=== PATIENT | female | born 1990 | race African-American/Black ===

== ENCOUNTER 2021-07-02 13:29 | Emergency (ER) | payer SELFPAY ==
[~2021-07-02] VITALS: Ht 165.1 cm; Wt 74.8 kg
[2021-07-02 22:10] VITALS: BP 137/92
[2021-07-02 23:40] LABS: Basophils # (auto) 0 10 ^3/uL (0-0.2); Basophils % (auto) 0.4 % (0.0-2.0); Eosinophils # (auto) 0 10 ^3/uL (0-0.8); Eosinophils % (auto) 0.2 % (0.0-7.0); Hematocrit 43.6 % (36.0-46.0); Hemoglobin 14.1 g/dL (12.2-16.2); Lymphocytes # (auto) 2.5 10 ^3/uL (0.4-5.4); Lymphocytes % (auto) 23.3 % (10.0-50.0); Mean Corpuscular Hemoglobin 27.9 pg (28.0-32.0); Mean Corpuscular Hgb Conc. 32.3 g/dL (32.0-36.0); Mean Corpuscular Volume 86.5 fL (80.0-100.0); Monocytes # (auto) 0.6 10 ^3/uL (0-1.3); Monocytes % (auto) 5.6 % (0.0-12.0); Neutrophils # (auto) 7.7 10 ^3/uL (1.6-8.6); Neutrophils % (auto) 70.5 % (37.0-80.0); Nucleated Red Blood Cells % 0.1 %; Red Blood Cells 5.04 10^6/uL (4.0-5.20); Red Cell Distribution Width 13.8 % (11.8-14.3); White Blood Cell 10.9 10^3/uL (4.4-10.8)
[2021-07-03] LABS: Albumin 4.2 g/dL (3.4-5.0); Anion Gap 11 (5-15); Blood Urea Nitrogen 14 mg/dL (7-18); Calcium 9.6 mg/dL (8.5-10.1); Carbon Dioxide 19 mmol/L (21-32); Chloride 110 mmol/L (98-107); Glucose 77 mg/dL (74-106); Potassium 3.3 mmol/L (3.5-5.1); Sodium 140 mmol/L (136-145)
[2021-07-03 00:02] LABS: Alanine Aminotransferase 37 U/L (13-56); Aspartate Aminotransferase 44 U/L (15-37); BUN/Creatinine Ratio 17.1; Blood Alcohol < 3.0 mg/dL (0-5); GFR African American 105 mL/min; GFR Non-African American 87 mL/min
[2021-07-03 00:03] LABS: Salicylate < 1.7 mg/dL (2.8-20.0)
[2021-07-03 00:04] LABS: Alkaline Phosphatase 80 U/L (45-117); Bilirubin, Total 0.6 mg/dL (0.2-1.0); Total Protein 8.8 g/dL (6.4-8.2)
[2021-07-03 00:10] LABS: Acetaminophen < 2.0 ug/mL (10-30)
== END 2021-07-03 08:19 | disposition left against medical advice (07) ==
LOC: EDBD 13:29 → ER 13:51
DX: F20.9 Schizophrenia, unspecified (principal)
CPT/HCPCS: 36415; 80053; 80320; 80329; 85025

== ENCOUNTER 2021-08-29 22:22 | Emergency (ER) | payer MEDICAID, OTHER ==
[~2021-08-29] VITALS: Ht 182.9 cm; Wt 45.4 kg
[2021-08-30] MEDS ORDERED: IBU600T PO (00:28)
[2021-08-30] MEDS ORDERED: KETOROLAC TROMETH 60MG/2ML VIAL IM ONE (00:30)
[2021-08-30 02:37] VITALS: BP 128/84
== END 2021-08-30 02:40 | disposition designated cancer center or children's hospital (05) ==
LOC: ER 22:26
DX: M47.812 Spondylosis without myelopathy or radiculopathy, cervical region (principal); F25.9 Schizoaffective disorder, unspecified
CPT/HCPCS: 72040; 96372; 99283; J1885